=== PATIENT | male | born 1985 | race Caucasian/White ===

== ENCOUNTER 2019-09-18 11:03 | Day surgery (SDC) | payer OTHER ==
--- NOTE | 2019-09-18 11:05 | ERPHSYRPT ---
- History of Present Illness Time Seen by Provider: 09/18/19 11:05 Source: patient, family Exam Limitations: no limitations Physician History: 33 y/o white male ate pork chop one hour lighter captain. meat stuck in esophagus. pt trang oral secretions. this has happened before. usually passes on its own Timing/Duration: abrupt onset, this morning Severity: mild Prearrival Treatment: no prearrival treatment Modifying Factors: Improves With: other (swallowing) Associated Symptoms: difficulty swallowing Allergies/Adverse Reactions: Penicillins Allergy (Verified 09/18/19 11:18) Home Medications: No Reportable Medications [No Reported Medications] 09/18/19 [History] - Review of Systems Constitutional: No Symptoms Eyes: No Symptoms Ears, Nose, & Throat: Painful Swallowing Respiratory: No Symptoms Cardiac: No Symptoms Abdominal/Gastrointestinal: No Symptoms Genitourinary Symptoms: No Symptoms Musculoskeletal: No Symptoms Skin: No Symptoms Neurological: No Symptoms Psychological: No Symptoms Endocrine: No Symptoms Hematologic/Lymphatic: No Symptoms Immunological/Allergic: No Symptoms All Other Systems: Reviewed and Negative - Past Medical History Pertinent Past Medical History: Yes Neurological History: No Pertinent History ENT History: No Pertinent History Cardiac History: No Pertinent History Respiratory History: No Pertinent History Endocrine Medical History: No Pertinent History Musculoskeletal History: No Pertinent History GI Medical History: No Pertinent History History: No Pertinent History Psycho-Social History: No Pertinent History Male Reproductive Disorders: No Pertinent History - Past Surgical History Neuro Surgical History: No Pertinent History Cardiac: No Pertinent History Respiratory: No Pertinent History Gastrointestinal: No Pertinent History Genitourinary: No Pertinent History Musculoskeletal: No Pertinent History Male Surgical History: No Pertinent History - Nursing Vital Signs Nursing Vital Signs: Initial Vital Signs Temperature 97.5 F 09/18/19 11:09 Pulse Rate 82 09/18/19 11:09 Blood Pressure 163/94 09/18/19 11:09 O2 Sat by Pulse Oximetry 97 09/18/19 11:09 Pain Scale Pain Intensity 0 - Physical Exam General Appearance: mild distress, alert, anxiety Eye Exam: bilateral eye: normal inspection, PERRL, EOMI Ear Exam: bilateral ear: auricle normal, canal normal, TM normal Nasal Exam: normal inspection Throat Exam: normal, pharynx normal, moist mucus membranes Neck Exam: normal inspection, non-tender, supple, full range of motion, trachea midline Cardiovascular/Respiratory Exam: normal breath sounds, regular rate/rhythm, heart sounds normal, no respiratory distress Abdominal Exam: non-tender, soft Neurologic Exam: alert, oriented x 3, cooperative, field technical specialist II-XII nml as tested Skin Exam: normal color, warm, dry SpO2 Interpretation: normal O2 Delivery: Room Air - Course Nursing assessment & vital signs reviewed: Yes Ordered Tests: Active Orders 24 hr Category Date Time Status IV Insertion STAT Care 09/18/19 13:14 Active UGI w/o AIR Stat Exams 09/18/19 12:56 Completed Medication Summary Discontinued Medications Generic Name Dose Route Start Last Admin Trade Name Daylin PRN Reason Stop Dose Admin Glucagon 1 mg 09/18/19 11:17 09/18/19 11:22 Glucagen 1 Mg IM 09/18/19 11:18 1 mg STAT ONE Administration Glucagon Confirm 09/18/19 11:20 Glucagen 1 Mg Administered 09/18/19 11:21 Dose 1 mg .ROUTE .STK-MED ONE Sodium Chloride 1,000 mls @ 999 mls/hr 09/18/19 13:14 09/18/19 14:25 Sodium Chloride 0.9% 1000 Ml IV 09/18/19 14:14 Infused .Q1H1M STA Infusion Sodium Chloride Confirm 09/18/19 13:26 Sodium Chloride 0.9% 1000 Ml Administered 09/18/19 13:27 Dose 1,000 mls @ ud .ROUTE .STK-MED ONE Lactated Ringer's Confirm 09/18/19 15:11 Lactated Ringers Administered 09/18/19 15:12 Dose 1,000 mls @ ud IV .STK-MED ONE Lorazepam 0.5 mg 09/18/19 13:42 09/18/19 13:44 Ativan 2 Mg/1 Ml Vial IV 09/18/19 13:43 0.5 mg STAT ONE Administration Lorazepam Confirm 09/18/19 13:43 Ativan 2 Mg/1 Ml Vial Administered 09/18/19 13:44 Dose 2 mg .ROUTE .STK-MED ONE Ondansetron HCl 4 mg 09/18/19 13:15 09/18/19 13:28 Zofran 4 Mg/2 Ml Vial IV 09/18/19 13:16 4 mg STAT ONE Administration Ondansetron HCl Confirm 09/18/19 13:26 Zofran 4 Mg/2 Ml Vial Administered 09/18/19 13:27 Dose 4 mg .ROUTE .STK-MED ONE Propofol Confirm 09/18/19 14:41 Diprivan 200 Mg/20 Ml Administered 09/18/19 14:42 Dose 200 mg IV .STK-MED ONE Succinylcholine Chloride Confirm 09/18/19 14:41 Quelicin Fliptop 200 Mg/10 Ml Administered 09/18/19 14:42 Dose 200 mg .ROUTE .STK-MED ONE - Progress Progress: re-examined Progress Note: 09/18/19 13:52 ugi series-distal ge junction obstruction with presumed food bolus. Discussed with Dr.: Kay (call surgeon in or. he is available for endoscopy after office if endoscopy cannot be done prior by gen surg), Other (Uriah oneill communication via rn-order an ugi) Counseled pt/family regarding: diagnosis, need for follow-up, rad results - Departure Departure Disposition: Observation Clinical Impression: Esophageal obstruction due to food impaction Condition: Stable Critical Care Time: No
[2019-09-18] MEDS ORDERED: GlucaGen 1 MG IM ONE (11:17)
[2019-09-18] MEDS ORDERED: GlucaGen 1 MG ONE (11:20)
--- NOTE | 2019-09-18 13:06 | XRAY ---
Indication: Food stuck after eating pork chop. Vomiting. Limited esophagram performed. Patient ingested a few small sips of diluted Gastrografin. There is a filling defect at the GE junction with no contrast passing. Remaining esophagram unremarkable. Impression: Obstruction at the GE junction presumed ingested food bolus. Telephone report given to the ordering clinician, Dr. Kent at 1258 hrs. on September 18, 2019.
[2019-09-18] MEDS ORDERED: Sodium Chloride 0.9% 1000 ML 1,000 ML IV STA (13:14)
[2019-09-18] MEDS ORDERED: Zofran 4 MG/2 ML VIAL IV ONE (13:15)
[2019-09-18] MEDS ORDERED: Zofran 4 MG/2 ML VIAL ONE (13:26)
[2019-09-18] MEDS ORDERED: Sodium Chloride 0.9% 1000 ML 1,000 ML ONE (13:26)
[2019-09-18] MEDS ORDERED: Ativan 2 MG/1 ML VIAL IV ONE (13:42)
[2019-09-18] MEDS ORDERED: Ativan 2 MG/1 ML VIAL ONE (13:43)
[2019-09-18] MEDS ORDERED: Quelicin Fliptop 200 MG/10 ML ONE (14:41)
[2019-09-18] MEDS ORDERED: DIPRIVAN 200 MG/20 ML IV ONE (14:41)
[2019-09-18] MEDS ORDERED: Lactated Ringers 1,000 ML IV ONE (15:11)
[2019-09-18 16:17] VITALS: O2SAT 96
[2019-09-18 16:28] VITALS: BP 120/81; PULSE 84
--- NOTE | 2019-09-19 07:40 | OP ---
PROCEDURE DATE/TIME: 09/18/2019 1431 PREOPERATIVE DIAGNOSIS: Food bolus obstructing the gastroesophageal junction. POSTOPERATIVE DIAGNOSIS: Reflux disease with mild reflux esophagitis and majority of food bolus in stomach at the time of procedure. PROCEDURE: EGD. PROCEDURE PERFORMED BY: Laurita Taveras M.D. ESTIMATED BLOOD LOSS: None. ANESTHESIA: General endotracheal tube. SPECIMEN: None. COMPLICATIONS: None. HISTORY: This is a 33 year-old gentleman who presents with a food bolus here for urgent EGD due to obstruction. Risks, benefits, alternatives discussed with him in the preoperative area. H&P was written down in the chart at that time and it was also dictated later as well. Please see both notes for all details. DESCRIPTION OF PROCEDURE: The patient was then brought back to the operative suite. Anesthesia induced. He was in supine position with head raised. Scope gently introduced into the mouth, oropharynx, down into the esophagus. The upper esophagus is normal. In the distal esophagus there were some reflux changes and some mild esophagitis. His gastroesophageal junction was open. There was some liquid here as well as a small amount of residual food which was suctioned free and then a small amount stayed on the suction tip and was easily passed into the stomach. There was a larger food bolus in the stomach. I was able to navigate around this and enter the pylorus and duodenum. The duodenum was normal. What I can see of the stomach looks healthy. My view is partially obstructed due to the food in the stomach. There is some food up at the cardia and then the food bolus that I suspect was blocking the gastroesophageal junction is now in the stomach and looks appropriate like it would be able to pass without issue. We did insure that his gastroesophageal junction was completely cleared. He does have some inflammation here this may be due to reflux disease which he has symptoms or also could have been due to the food bolus being stuck here which the majority of it he looks like it passed on its own and then I suctioned free the small amount of fluid that had still remained here. On retroflex view his hiatus looks okay. He may have a subtle physiologic hernia here this is very minor and then we were able to carefully remove the scope. I did not see any significant concerning tear here. The scope was able to be completely removed. The patient tolerated the procedure very well. At this time we will let the food bolus in the stomach naturally pass. I have discussed with his family that he will need to be drinking liquids today and then as long as he feels good and has no pain he can start on a soft diet tomorrow and he could stay on a soft diet for a week. He also will need to chew his food particularly meat better so that this does not happen again and we will tentatively plan another EGD in about three weeks after this inflammation at his gastroesophageal junction has gone down so that we can rescope him and insure that there is no chronic issue and inflammation here such as Gipson's disease as this could not be adequately assessed due to the inflammation from the food bolus. I have also recommended that he decrease his NSAID use and attempt to use Tylenol instead.
--- NOTE | 2019-09-19 07:53 | HP ---
HISTORY: This is a gentleman who presented to the emergency room with a food bolus. He was eating some pork. He felt like this got stuck at the epigastric area and then when he was drinking liquids he felt like he was having pressure and some mild discomfort and that things were not going down well. He said he has had some things feel like they may have gotten stuck before but all he would do is drink some liquids and they would wash down. He has never had to have a food bolus removed in the past. He does not have any known stricture or esophageal issue that has been known in the past. He did tear his meniscus and he has been on two to four NSAID per day due to this which was recent and he does state that he also had reflux symptoms prior to having a food bolus. PAST MEDICAL HISTORY: No significant medical history. MEDICATIONS: No prescription medications. He takes [id number] NSAID's as needed. ALLERGIES: PENICILLIN A BABY. HE IS NOT SURE WHAT THE REACTION WAS. FAMILY HISTORY: No bleeding or anesthesia problems in the patient or family personally. PHYSICAL EXAMINATION: GENERAL: No acute distress. CVS: Regular rate and rhythm. PULMONARY: Nonlabored. ABDOMEN: Soft, nontender, nondistended. EXTREMITIES: Normal. The patient states that his discomfort and fullness seems to have improved. He did receive some Ativan for anxiety. ASSESSMENT: Upper GI study reviewed. The patient has an obstruction at the gastroesophageal junction which is likely a food bolus. No signs of extravasation or other issue. PLAN: EGD with foreign body removal. I discussed with the patient in detail that we will attempt to remove the foreign body from his gastroesophageal junction, this may mean removing it physically out of his body or will mean gently pushing it into the stomach so that the body can handle it naturally whichever is feasible in surgery but the goal will be to remove the obstruction from the location of the gastroesophageal junction. He understands all of the risks, benefits and alternatives. The risk of tear, bleed and other risks and he would like to proceed with the procedure as we discussed in detail. This emergent due to the obstruction on the upper GI and we are going to take him immediately to surgery now.
== END 2019-09-18 16:30 | disposition home or self-care (01) ==
LOC: ED 11:03 → SDC 14:00
PROVIDERS: ATTEND Surgery
DX: T18.128A Food in esophagus causing other injury, initial encounter (principal); K21.9 Gastro-esophageal reflux disease without esophagitis
CPT/HCPCS: 36000; 74240; 96372; 96374; 96375; 99140; 99284; J0330; J1610; J2060; J2405; J2704